=== PATIENT | female | born 1945 | race Caucasian/White ===

== ENCOUNTER 2024-04-02 15:12 | Emergency (ER) | payer MEDICAID ==
[~2024-04-02] VITALS: Ht 152.4 cm; Wt 45.4 kg
[~2024-04-02 15:12] MED LIST: ALEN70TA79 PO; AMOX1TAB16 MT; ARAV20 PO; ATOR-2 PO; CALC-700 PO; CARV25TA47 PO; CETI10TA6 PO; DICL100G58 TP; DULO60CA64 PO; FOLI-43 PO; GABA-529 PO; LANTUSUD SUBCUT; LINA5TAB PO; LISI-186 PO; METF-416 PO; PANT40TA51 PO; PREG100C55 PO; SPIR25TA6 PO; SULF1TAB48 MT; SULF500T PO
[2024-04-02 15:14] VITALS: BP 111/57; RESP 16; TEMP 98.7; O2SAT 100
[2024-04-02 15:23] VITALS: PULSE 102; O2SAT 100
[2024-04-02 16:33] LABS: BASOPHILS % 0.2 % (0.0-2.0); EOSINOPHILS % 0.1 % (0.0-5.0); HEMATOCRIT. 30.2 % (36.0-48.0); HEMOGLOBIN. 9.4 g/dL (12.0-16.0); LYMPHOCYTES % 23.5 % (20.0-50.0); MEAN CORPUSCULAR HGB CONC 31.2 g/dL (31.0-37.0); MEAN CORPUSCULAR VOLUME 70.5 fL (81.0-99.0); MEAN PLATELET VOLUME 6.8 fl (7.4-10.4); MONOCYTES % 7.8 % (2.0-8.0); NEUTROPHILS % 68.4 % (40.0-76.0); PLATELET 644 x1000/uL (130-400); RED BLOOD CELL COUNT 4.28 mill/uL (4.2-5.4); RED CELL DISTRIBUTION WIDTH 27.6 % (11.6-14.6); WHITE BLOOD COUNT 7.2 x1000/uL (4.5-11.0)
[2024-04-02 16:34] LABS: DIFFERENTIAL COMMENT 1
[2024-04-02 16:35] LABS: ADD RBC MORPHOLOGY YES
[2024-04-02 16:39] LABS: CARBON DIOXIDE 23 mEq/L (21-32); CHLORIDE 106 mEq/L (98-107); POTASSIUM 3.5 mEq/L (3.5-5.1); SODIUM 137 mEq/L (136-145)
[2024-04-02 16:40] LABS: CALCIUM 8.5 mg/dL (8.7-10.4)
[2024-04-02 16:44] LABS: CREATININE 0.7 mg/dL (0.6-1.0); GLUCOSE 225 mg/dL (70-105)
[2024-04-02 16:45] LABS: UREA NITROGEN BLOOD 8 mg/dL (9-23)
[2024-04-02 16:46] LABS: ALANINE AMINOTRANSFERASE 8 IU/L (10-49); ASPARTATE AMINOTRANSFERASE 27 IU/L (<34)
[2024-04-02 16:47] LABS: ALBUMIN 3.1 g/dL (3.2-4.8); BILIRUBIN TOTAL 0.2 mg/dL (0.1-1.0); PROTEIN TOTAL 6.8 g/dL (6.0-8.3)
[2024-04-02 18:41] LABS: ANISOCYTOSIS 1+; HYPOCHROMASIA 1+; MICROCYTOSIS 1+; PLATELET ESTIMATE INCREASED
[2024-04-02] MEDS ORDERED: FLUC150T46 MT (19:40)
[2024-04-02] MEDS ORDERED: METR-167 MT (19:40)
[2024-04-02 19:56] LABS: CLARITY URINE CLOUDY (CLEAR); COLOR URINE DARK YELLOW (YELLOW); GLUCOSE URINE TRACE (NEGATIVE); KETONES URINE TRACE (NEGATIVE); LEUKOCYTE ESTERASE URINE 2+ (NEGATIVE); NITRITE URINE POSITIVE (NEGATIVE); OCCULT BLOOD URINE NEGATIVE (NEGATIVE); PROTEIN URINE TRACE (NEGATIVE); SPECIFIC GRAVITY URINE 1.024 (1.005-1.030); UROBILINOGEN URINE 0.2 E.U./dL (0.2-1.0)
[2024-04-02 20:52] LABS: WBC URINE 50-100 /hpf (0-2)
[2024-04-02 20:53] LABS: BACTERIA URINE 2+; SQUAMOUS EPITHELIAL CELL URINE 1+ /lpf (RARE/1+)
[2024-04-02] MEDS ORDERED: SULF1TAB48 MT (22:43)
== END 2024-04-02 19:54 | disposition home or self-care (01) ==
LOC: ER 15:12
DX: B37.9 Candidiasis, unspecified (principal); N39.0 Urinary tract infection, site not specified; E11.65 Type 2 diabetes mellitus with hyperglycemia; I10 Essential (primary) hypertension; I25.10 Atherosclerotic heart disease of native coronary artery without angina pectoris; Z86.73 Personal history of transient ischemic attack (TIA), and cerebral infarction without residual deficits; Z79.899 Other long term (current) drug therapy; Z79.84 Long term (current) use of oral hypoglycemic drugs; Z79.69 Long term (current) use of other immunomodulators and immunosuppressants
CPT/HCPCS: 36415; 80053; 81003; 85025; 87077; 87186; 99283